=== PATIENT | female | born 1985 | race Caucasian/White ===

== ENCOUNTER 2017-02-20 10:30 | Emergency (ER) | payer BC, MEDICAID ==
[~2017-02-20] VITALS: Ht 165.1 cm; Wt 89.5 kg
[2017-02-20 10:44] VITALS: Ht 165.1 cm; Wt 89.5 kg
[2017-02-20] MEDS ORDERED: LABETALOL HCL 20MG INJ IV ONE (14:00)
--- NOTE | 2017-02-20 14:36 | RADRPT ---
PROCEDURE: US OB. CLINICAL INDICATION: Vaginal bleeding and [id number] female. TECHNIQUE: Transabdominal and transvaginal views of the pelvis are available for review. COMPARISON: No prior studies are available for comparison. FINDINGS: Placenta: Circumferential grade 0.. There is a subchorionic hemorrhage measuring 1.9 x 0.8 by 1.7 cm . Presentation:Mobile. [place]-rump length:2 cm equals 8 weeks 4 days. heart rate:174 beats per minute. Amniotic fluid volume: Normal. Ultrasound estimated gestational age: The gestational sac measures 5.6 x 2.2 x 3.8 cm. Main sac diameter equals 9 weeks 2 days. No ovarian or adnexal mass lesion is seen. There is no free fluid. The right ovary as normal blood f low and measures 4 x 2.9 by 2.8 cm. There is a right ovarian cyst measuring 2 x 1.9 cm. The left ov dipika is not visualized. IMPRESSION: 1. Single viable fetus is identified. AUA = 8-week 6 days plus or minus 4 days. 2. ANUPAMA (A): 09/26/2017. 3. 1.9 x 1.7 x 0.8 cm subchorionic hemorrhage. 4. Benign right ovarian cyst measuring 2 x 1.9 cm. RPTAT:AAJJ Physician Abram Date Time Electronically viewed and signed by Physician Abram on 02/20/2017 14:36 /
[2017-02-20 14:48] LABS: BASOPHIL # 0.1 10^3/ul (0.0-0.1); BASOPHILS % 0.4 % (0.0-2.0); EOSINOPHILS # 0.1 10^3/ul (0.0-0.5); EOSINOPHILS % 0.6 % (0.0-7.0); LYMPHOCYTES # 2.3 10^3/ul (0.8-2.9); LYMPHOCYTES % 16.8 % (15.0-51.0); MEAN CORPUSCULAR HGB CONC 34.2 g/dl (32.0-37.0); MEAN CORPUSCULAR VOLUME 84.6 fl (82.0-101.0); MONOCYTE # 1.1 10^3/ul (0.3-0.9); NEUTROPHIL # 10.3 10^3/ul (1.6-7.5); NEUTROPHILS % 73.8 % (39.0-77.0); PLATELET COUNT 313 10^3/UL (140-415); RED BLOOD COUNT 4.49 10^6/ul (4.20-5.40); RED CELL DISTRIBUTION WIDTH 12.9 % (11.5-14.5)
[2017-02-20 14:51] VITALS: BP 120/70; PULSE 78
[2017-02-20 15:11] LABS: ALBUMIN 4.4 g/dl (3.3-4.9); ALBUMIN/GLOBULIN RATIO 1.22; BILIRUBIN,INDIRECT 0.2 mg/dl (0-1.1); BILIRUBIN,TOTAL 0.2 mg/dl (0.2-1.3); CALCIUM 9.5 mg/dl (8.4-10.2); CREATININE 0.55 mg/dl (0.44-1.00); POTASSIUM 3.7 mmol/L (3.5-5.1)
[2017-02-20] MEDS ORDERED: FOLI-49 PO (15:16)
[2017-02-20] MEDS ORDERED: PRENAT PO (15:16)
[2017-02-20] MEDS ORDERED: LABE100T3 PO (15:17)
--- NOTE | 2017-02-20 16:33 | ERD ---
ER Documentation Chief Complaint Date/Time DATE: 02/20/17 TIME: 16:32 Chief Complaint VAGINAL BLEEDING AND HPI Patient is a 31-year-old female with gestational diabetes who presents with vaginal bleeding. The patient had vaginal bleeding with urination today at 6 a.m. and it was bright pink. Then at 10 AM she started with blood clots which made her come to the ER. She is a . She denies pain or cramps. She had no syncope but felt dizzy. She has been told that she has had high blood pressure during this and has been given labetalol and has used it 3 times for elevated blood pressure. Her OB doctor is Dr. Simmons. She does not currently have a primary doctor. ROS All systems reviewed and are negative except as per history of present illness. Medications Home Meds Reported Medications Labetalol Hcl* (Labetalol Hcl*) 100 Mg Tablet, 100 MG PO DAILY, TAB 02/20/17 Folic Acid* (Folic Acid*) 1 Mg Tablet, 1 MG PO DAILY, TAB 02/20/17 Multivit/Min/Fol Ac/Iron/Pren* ( S*) 1 Tab Tab, 1 TAB PO DAILY, TAB 02/20/17 Allergies Allergies: Coded Allergies: No Known Drug Allergy (Verified Allergy, Unknown, 02/08/08) PMhx/Soc Medical and Surgical Hx: pt denies Medical Hx, pt denies Surgical Hx Hx Alcohol Use: No Hx Substance Use: No Hx Tobacco Use: No Smoking Status: Current some day smoker FmHx Family History: diabetes Physical Exam Vitals Vital Signs Date Time Temp Pulse Resp B/P Pulse Ox O2 Delivery O2 Flow Rate FiO2 02/20/17 14:51 78 120/70 02/20/17 10:44 98.4 96 18 190/81 98 Physical Exam Const: No acute distress Head: Atraumatic Eyes: Normal Conjunctiva ENT: Normal External Ears, Nose and Mouth. Neck: Full range of motion..~ No meningismus. Resp: Clear to auscultation bilaterally Cardio: Regular rate and rhythm, no murmurs Abd: Soft, non tender, non distended. Normal bowel sounds Skin: No petechiae or rashes Back: No midline or flank tenderness Ext: No cyanosis, or edema Neur: Awake and alert Psych: Normal Mood and Affect Result Diagram: 02/20/17 1440 02/20/17 1440 Results 24 hrs Laboratory Tests Test 02/20/17 14:40 White Blood Count 14.010^3/ul Red Blood Count 4.4910^6/ul Hemoglobin 13.0g/dl Hematocrit 38.0% Mean Corpuscular Volume 84.6fl Mean Corpuscular Hemoglobin 29.0pg Mean Corpuscular Hemoglobin Concent 34.2g/dl Red Cell Distribution Width 12.9% Platelet Count 39405^3/UL Mean Platelet Volume 11.0fl Neutrophils % 73.8% Lymphocytes % 16.8% Monocytes % 8.0% Eosinophils % 0.6% Basophils % 0.4% Nucleated Red Blood Cells % 0.0/100WBC Neutrophils # 10.310^3/ul Lymphocytes # 2.310^3/ul Monocytes # 1.110^3/ul Eosinophils # 0.110^3/ul Basophils # 0.110^3/ul Nucleated Red Blood Cells # 0.010^3/ul Sodium Level 143mmol/L Potassium Level 3.7mmol/L Chloride Level 100mmol/L Carbon Dioxide Level 25mmol/L Anion Gap 22 Blood Urea Nitrogen 8mg/dl Creatinine 0.55mg/dl Glucose Level 90mg/dl Calcium Level 9.5mg/dl Total Bilirubin 0.2mg/dl Direct Bilirubin 0.00mg/dl Indirect Bilirubin 0.2mg/dl Aspartate Amino Transf (AST/SGOT) 16IU/L Alanine Aminotransferase (ALT/SGPT) 29IU/L Alkaline Phosphatase 48IU/L Total Protein 8.0g/dl Albumin 4.4g/dl Globulin 3.60g/dl Albumin/Globulin Ratio 1.22 Beta HCG, Quantitative 781815.0mIU/ml Current Medications Medications (Trade) Dose Ordered Sig/Keily Route PRN Reason Start Time Stop Time Status Last Admin Dose Admin Labetalol HCl (Labetalol) 20 mg ONCE ONCE IV 02/20/17 14:00 02/20/17 14:01 DC Procedures/MDM Ultrasound shows a viable in the uterus per radiology. Patient is a 31-year-old female presents with a threatened . Laboratory studies are basically normal. Her ultrasound shows an IUP with a viable baby. I doubt ectopic . Blood pressure was rechecked and the blood pressure was 120/60 and therefore I believe the blood pressure in triage was likely erroneous. I do not think that she requires any blood pressure lowering medications at this time. I doubt preeclampsia or eclampsia. The patient will be discharged and can follow-up with her OB doctor within 24-48 hours for reevaluation. She can return sooner for any worsening symptoms. Departure Diagnosis: Primary Impression: Threatened Additional Impression: Vaginal bleeding Condition: Fair Patient Instructions: Possible Miscarriage (Threatened ) Referrals: Dr. Simmons Additional Instructions: Call your primary care doctor TOMORROW for an appointment during the next 1-2 days.See the doctor sooner or return here if your condition worsens before your appointment time. TRACY ROSALES MD Feb 20, 2017 16:33
[2017-02-20 16:57] LABS: ADD UMIC YES; UR ASCORBIC ACID NEGATIVE (NEGATIVE); UR BACTERIA FEW /HPF (NONE SEEN); UR BILIRUBIN (Dip) NEGATIVE (NEGATIVE); UR BLOOD (Dip) 3+ mg/dL (NEGATIVE); UR CLARITY SLIGHTLY CLOUDY (CLEAR); UR COLOR STRAW (YELLOW); UR GLUCOSE (Dip) NEGATIVE (NEGATIVE); UR KETONES (Dip) NEGATIVE (NEGATIVE); UR LEUKOCYTE ESTERASE (Dip) 3+ Leu/ul (NEGATIVE); UR NITRITE (Dip) NEGATIVE (NEGATIVE); UR RBC 7 /HPF (0-5); UR SPECIFIC GRAVITY (Dip) 1.003 (1.003-1.030); UR SQUAMOUS EPITHELIAL CELL FEW /HPF (FEW); UR TOTAL PROTEIN (Dip) NEGATIVE (NEGATIVE); UR UROBILINOGEN (Dip) NEGATIVE (NEGATIVE)
== END 2017-02-20 17:22 | disposition home or self-care (01) ==
LOC: E/R 10:30
DX: O20.0 Threatened abortion (principal); O99.331 Smoking (tobacco) complicating pregnancy, first trimester; F17.210 Nicotine dependence, cigarettes, uncomplicated; Z3A.09 9 weeks gestation of pregnancy
CPT/HCPCS: 36415; 76801; 80053; 81001; 84702; 85025; 86900; 86901